=== PATIENT | male | born 1960 | race African-American/Black ===

== ENCOUNTER 2016-12-28 09:58 | Inpatient (IN) | payer OTHER ==
[2016-12-28 10:42] VITALS: BMI 30.6
--- NOTE | 2016-12-28 11:35 | HP ---
COWS - Scale Resting Pulse: 1= [place] 81-100 Sweatin= Chills/Flushing Restless Observation: 1= Difficult to Sit Still Pupil Size: 0= Normal to Room Light Bone or Joint Aches: 2= Severe Diffuse Aches Runny Nose/ Eye Tearin= Nasal Congestion GI Upset > 30mins: 2= Nausea/Diarrhea Tremor Observation: 1= Tremor [place], Not Seen Yawning Observation: 1= 1-2x During Session Anxiety or Irritability: 1=Feels Anxious/Irritable Goose Flesh Skin: 0=Smooth Skin COWS Score: 11 Admission [facility] - HPI Chief Complaint: I have a young son, I want to stop using Allergies/Adverse Reactions: Allergies Allergy/AdvReac Type Severity Reaction Status Date / Time lisinopril Allergy Severe Swelling Verified 12/28/16 11:06 History of Present Illness: 56 yo gentleman here for detox from opiates (heroin and street methadone) - relapsed about a year ago. No seizures, History of being on methadone program but too restrictive - now thinking about suboxone after detox. Exam Limitations: Clinical Condition - Ebola screening Have you traveled outside of the country in the last 21 days: No Have you had contact with anyone from an Ebola affected area: No Have you been sick,other than usual withdrawal symptoms: No Do you have a fever: No - Review of Systems Constitutional: Chills, Loss of Appetite, Changes in sleep, Weakness, Unintentional Wgt. Loss EENT: reports: Blurred Vision, Nose Congestion Respiratory: reports: No Symptoms reported Cardiac: reports: No Symptoms Reported GI: reports: Nausea, Abdominal cramping : reports: No Symptoms Reported Musculoskeletal: reports: Back Pain, Muscle Pain Integumentary: reports: No Symptoms Reported Neuro: reports: Headache, Tremors Endocrine: reports: No Symptoms Reported Hematology: reports: No Symptoms Reported Psychiatric: reports: Judgement Intact, Mood/Affect Appropiate, Orientated x3, Anxious Other Systems: Reviewed and Negative Patient History - Patient Medical History Hx Asthma: No Hx Chronic Obstructive Pulmonary Disease (COPD): No Hx Cardiac Disorders: No Hx Hypertension: Yes (poor adherence to meds) Hx Hypercholesterolemia: No Hx Pacemaker: No HX Cerebrovascular Accident: No Hx Seizures: No Hx Dementia: No Hx Diabetes: No Hx Gastrointestinal Disorders: No Hx Liver Disease: No Hx Genitourinary Disorders: No Hx Sexually Transmitted Disorders: No Hx Renal Disease (ESRD): No Hx Thyroid Disease: No Hx Human Immunodeficiency Virus (HIV): No Hx Hepatitis C: No Hx Depression: Yes Hx Suicide Attempt: Yes (three times - last 2001 - slit wrists - hospitalized) Hx Bipolar Disorder: Yes (hospitalized 2016 - suicidal ideation - [place] [facility] ) Hx Schizophrenia: No Other Medical History: +PPD - not treated - Patient Surgical History Past Surgical History: Yes Hx Neurologic Surgery: No Hx Cataract Extraction: No Hx Cardiac Surgery: No Hx Lung Surgery: No Hx Breast Surgery: No Hx Breast Biopsy: No Hx Abdominal Surgery: No Hx Appendectomy: No Hx Cholecystectomy: No Hx Genitourinary Surgery: No Hx Section: No Hx Orthopedic Surgery: No Other Surgical History: HERNIA REPAIR- 1979 Anesthesia Reaction: No - PPD History Previous Implant?: Yes (states never took meds but cxr neg) Documented Results: Positive w/o proof Implanted On Prior [facility] Admission?: No PPD to be Administered?: No - Reproductive History Patient is a Female of Child Bearing Age (11 -55 yrs old): No (male) - Smoking Cessation Smoking history: Current every day smoker Have you smoked in the past 12 months: Yes Aproximately how many cigarettes per day: 20 Hx Chewing Tobacco Use: No Initiated information on smoking cessation: Yes 'Breaking Loose' booklet given: 12/28/16 (give on floor) - Substance & Tx. History Hx Alcohol Use: No Hx Substance Use: Yes Substance Use Type: Cocaine, Heroin, Opiates Hx Substance Use Treatment: Yes (detox years ago, rehab six years ago) - Substances Abused Heroin Route: Inhalation Frequency: Daily Amount used: 15 BAGS Age of first use: 16 Date of Last Use: 12/28/16 Non-Rx Methadone Route: Oral Frequency: 3-6 times per week Amount used: 40mg Age of first use: 30 Date of Last Use: 12/28/16 Crack Route: Inhalation Frequency: Daily Amount used: 4 bags Age of first use: 17 Date of Last Use: 12/28/16 Family Disease History - Family Disease History Family Disease History: Other: Father (, [place], ), Mother (, [place]), Brother (one, alive), Sister (two , alive) Admission Physical Exam S - Vital Signs Vital Signs: Vital Signs - 24 hr 12/28/16 10:38 Temperature 98.3 F Pulse Rate 85 Respiratory 20 Rate Blood Pressure 150/113 - Physical General Appearance: Yes: Nourished, Appropriately Dressed, Mild Distress, Anxious HEENTM: Yes: Hearing grossly Normal, Normocephalic, Normal Voice, Pharynx Normal Respiratory: Yes: Normal Breath Sounds, No Respiratory Distress Neck: Yes: No masses,lesions,Nodules Breast: Yes: Breast Exam Deferred Cardiology: Yes: Regular Rhythm, Regular Rate Abdominal: Yes: Soft Genitourinary: Yes: Within Normal Limits Back: Yes: Normal Inspection Musculoskeletal: Yes: full range of Motion, Gait Steady, Back pain, Muscle Pain Extremities: Yes: Normal Inspection, Normal Range of Motion Neurological: Yes: Fully Oriented, Alert, Normal Mood/Affect, Normal Response Integumentary: Yes: Normal Color, Warm Lymphatic: Yes: Within Normal Limits - Diagnostic (1) HTN (hypertension) Current Visit: Yes Status: Chronic Qualifiers: Hypertension type: essential hypertension Qualified Code(s): I10 - Essential (primary) hypertension (2) Nicotine dependence Current Visit: Yes Status: Chronic Qualifiers: Nicotine product type: cigarettes Substance use status: uncomplicated Qualified Code(s): F17.210 - Nicotine dependence, cigarettes, uncomplicated (3) Uncomplicated opioid dependence Current Visit: Yes Status: Chronic (4) History of positive PPD Current Visit: Yes Status: Chronic Comment: states never took medication but CXR has been normal Cleared for Admission [facility] - Detox or Rehab [facility] Level of Care: Medically Managed Detox Regimen/Protocol: Methadone [facility] Breath Alcohol Content Breath Alcohol Content: 0 Urine Drug Screen - Results Drug Screen Negative: No Urine Drug Screen Results: KADY-Cocaine, OPI-Opiates, BZO-Benzodiazepines
[2016-12-28] MEDS ORDERED: P-EPHED 60MG/TRIPROLIDI 2.5MG TABLET PO PRN (11:48)
[2016-12-28] MEDS ORDERED: NICOTINE POLACRILEX 4 MG GUM BUC PRN (11:48)
[2016-12-28] MEDS ORDERED: IBUPROFEN 400 MG TABLET (FP) PO PRN (11:48)
[2016-12-28] MEDS ORDERED: LOPERAMIDE HCL 2 MG CAPSULE PO PRN (11:48)
[2016-12-28] MEDS ORDERED: MENTHOL/PHENOL 1 EACH UD MM PRN (11:48)
[2016-12-28] MEDS ORDERED: ACETAMINOPHEN 325 MG TABLET (FP) PO PRN (11:48)
[2016-12-28] MEDS ORDERED: MAG HYDROX/AL HYDROX/SIMETH 30 ML UNIT-DOSE CUP PO PRN (11:48)
[2016-12-28] MEDS ORDERED: guaiFENesin/D-METHORPHAN HB 10 ML UNIT-DOSE CUPS PO PRN (11:48)
[2016-12-28] MEDS ORDERED: MAGNESIUM HYDROX 2400MG/30ML ORAL SUSPENSION 30 ML CUP PO PRN (11:48)
[2016-12-28] MEDS ORDERED: MAGNESIUM CITRATE 300 ML BOTTLE PO PRN (11:48)
[2016-12-28] MEDS ORDERED: METHADONE HCL 10 MG TABLET (FOR DETOX USE ONLY) PO ONE ×2 (13:00→23:00)
[2016-12-28] MEDS: amLODIPine BESYLATE 10 MG TABLET (FP) PO SCH (13:25)
[2016-12-28] MEDS: HYDROCHLOROTHIAZIDE 25 MG TABLET (FP) PO SCH (13:25)
[2016-12-28] MEDS: diazePAM 5 MG TABLET PO PRN ×2 (13:25→22:27)
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
[2016-12-28 19:24] LABS: URINE APPEARANCE CLEAR; URINE BILIRUBIN NEGATIVE (NEGATIVE); URINE BLOOD NEGATIVE (NEGATIVE); URINE COLOR DKYELLOW; URINE GLUCOSE (UA) 1+ (NEGATIVE); URINE KETONE NEGATIVE (NEGATIVE); URINE LEUK ESTERASE TRACE (NEGATIVE); URINE NITRITE NEGATIVE (NEGATIVE); URINE PROTEIN 1+ (NEGATIVE); URINE UROBILINOGEN NEGATIVE E.U./dl (0.2-1.0)
[2016-12-28 19:26] LABS: URINE BACTERIA RARE /hpf (NONE SEEN); URINE HYALINE CAST 4 /lpf; URINE MUCUS MODERATE; URINE RBC 2 /hpf (0-3); URINE WBC 35 /hpf (3-5)
[2016-12-28] MEDS ORDERED: diphenhydrAMINE HCL 50 MG CAPSULE PO PRN (22:00)
[2016-12-28] MEDS: THIAMINE HCL 100 MG TABLET (FP) PO SCH (22:27)
[2016-12-28] MEDS: traZODone HCL 100 MG TABLET (FP) PO SCH (22:28)
[2016-12-28] MEDS: cloNIDine HCL 0.1 MG TABLET PO PRN (22:28)
[2016-12-28] MEDS: DIVALPROEX SODIUM 500 MG TABLET E.C. PO SCH (22:28)
[2016-12-29] MEDS: diazePAM 5 MG TABLET PO PRN ×3 (05:42→22:35)
[2016-12-29] MEDS: cloNIDine HCL 0.1 MG TABLET PO PRN ×2 (06:29→22:35)
[2016-12-29] MEDS: HYDROCHLOROTHIAZIDE 25 MG TABLET (FP) PO SCH ×2 (07:29→10:27)
[2016-12-29] MEDS ORDERED: METHADONE HCL 10 MG TABLET (FOR DETOX USE ONLY) PO ONE (10:00)
[2016-12-29] MEDS: PRENATAL VITAMINS W/ FOLIC ACID TABLET (FP) PO SCH (10:26)
[2016-12-29] MEDS: amLODIPine BESYLATE 10 MG TABLET (FP) PO SCH (10:26)
[2016-12-29 11:03] LABS: URINE APPEARANCE CLEAR; URINE BILIRUBIN NEGATIVE (NEGATIVE); URINE BLOOD NEGATIVE (NEGATIVE); URINE COLOR LTYELLOW; URINE GLUCOSE (UA) 1+ (NEGATIVE); URINE KETONE NEGATIVE (NEGATIVE); URINE NITRITE NEGATIVE (NEGATIVE); URINE PROTEIN NEGATIVE (NEGATIVE); URINE UROBILINOGEN NEGATIVE E.U./dl (0.2-1.0)
[2016-12-29 11:06] LABS: MCH 28.5 pg (25.7-33.7); MCHC 33.3 g/dl (32.0-35.9); MEAN CELL VOLUME 85.5 fl (80-96); MEAN PLT VOLUME 8.7 fl (7.5-11.1); PLATELET COUNT 213 K/MM3 (134-434)
[2016-12-29 11:08] LABS: URINE LEUK ESTERASE TRACE (NEGATIVE)
[2016-12-29 11:09] LABS: URINE HYALINE CAST 1 /lpf; URINE MUCUS RARE; URINE RBC <1 /hpf (0-3); URINE WBC 5 /hpf (3-5)
[2016-12-29 11:13] LABS: ALBUMIN 2.9 g/dl (3.4-5.0)
[2016-12-29 11:19] LABS: BILIRUBIN,TOTAL 0.2 mg/dL (0.2-1.0); COCKROFT - GAULT 81.84; CREATININE 1.5 mg/dL (0.7-1.3); TOT PROT 6.1 g/dl (6.4-8.2)
--- NOTE | 2016-12-29 12:45 | EKG ---
Test Reason : Blood Pressure : / mmHG Vent. Rate : 071 BPM Atrial Rate : 071 BPM P-R Int : 142 ms QRS Dur : 088 ms QT Int : 414 ms P-R-T Axes : -86 -09 -45 degrees QTc Int : 449 ms UNUSUAL P AXIS, POSSIBLE ECTOPIC ATRIAL RHYTHM MINIMAL VOLTAGE CRITERIA FOR LVH, MAY BE NORMAL VARIANT T WAVE ABNORMALITY, CONSIDER LATERAL ISCHEMIA ABNORMAL ECG NO PREVIOUS ECGS AVAILABLE Confirmed by DORCAS FELIZ, TRAMAINE ([id number]) on 12/29/2016 12:45:17 PM Referred By: Confirmed By:TRAMAINE TOSCANO MD
--- NOTE | 2016-12-29 14:01 | PN ---
S COWS - Scale Resting Pulse: 0= HI 80 or Below Sweatin= Chills/Flushing Restless Observation: 3= Extraneous Movement Pupil Size: 0= Normal to Room Light Bone or Joint Aches: 1= Mild Discomfort Runny Nose/ Eye Tearin= Runny Nose/Eyes GI Upset > 30mins: 2= Nausea/Diarrhea Tremor Observation of Outstretched Hands: 2= Slight Tremor Visible Yawning Observation: 1= 1-2x During Session Anxiety or Irritability: 2=Irritable/Anxious Goose Flesh Skin: 0=Smooth Skin COWS Score: 14 S Progress Note (SOAP) Subjective: Tremor, chills, anxious, restless, interrupted sleep, sweating Objective: 12/29/16 13:57 Last Vital Signs Temp Pulse Resp BP Pulse Ox 97.2 F L 73 18 157/97 12/29/16 09:19 12/29/16 13:10 12/29/16 13:10 12/29/16 13:10 Laboratory Tests 12/28/16 12/29/16 12/29/16 19:03 07:00 07:00 WBC 5.0 RBC 4.29 Hgb 12.2 Hct 36.7 MCV 85.5 MCHC 33.3 RDW 15.0 Plt Count 213 MPV 8.7 Sodium 142 Potassium 3.2 L Chloride 105 Carbon Dioxide 28 Anion Gap 9 BUN 20 H Creatinine 1.5 H Creat Clearance w eGFR 48.41 Random Glucose 85 Calcium 8.0 L Total Bilirubin 0.2 AST 7 L ALT 15 Alkaline Phosphatase 55 Total Protein 6.1 L Albumin 2.9 L Urine Color Dkyellow Urine Appearance Clear Urine pH 6.0 Ur Specific [place] 1.026 Urine Protein 1+ H Urine Glucose (UA) 1+ H Urine Ketones Negative Urine Blood Negative Urine Nitrite Negative Urine Bilirubin Negative Urine Urobilinogen Negative Ur Leukocyte Esterase Trace H Urine RBC 2 Urine WBC 35 Ur Epithelial Cells Rare Urine Bacteria Rare Hyaline Casts 4 Urine Mucus Moderate RPR Titer 12/29/16 12/29/16 07:00 09:23 WBC RBC Hgb Hct MCV MCHC RDW Plt Count MPV Sodium Potassium Chloride Carbon Dioxide Anion Gap BUN Creatinine Creat Clearance w eGFR Random Glucose Calcium Total Bilirubin AST ALT Alkaline Phosphatase Total Protein Albumin Urine Color Ltyellow Urine Appearance Clear Urine pH 5.0 Ur Specific [place] 1.017 Urine Protein Negative Urine Glucose (UA) 1+ H Urine Ketones Negative Urine Blood Negative Urine Nitrite Negative Urine Bilirubin Negative Urine Urobilinogen Negative Ur Leukocyte Esterase Trace H Urine RBC <1 Urine WBC 5 Ur Epithelial Cells Rare Urine Bacteria Hyaline Casts 1 Urine Mucus Rare RPR Titer Nonreactive Labs noted: K 3.2, BUN 20, serum creatinine 1.5, GFR 48.41; UA 1+ glucose ( repeated) Assessment: 12/29/16 14:01 Withdrawal symptoms Noted with hypokalemia, KYLER secondary to dehydration, mild glycosuria Plan: Continue detox Hypokalemia: K Dur 40 meq x 2 doses today, repeat BMP in AM KYLER secondary to dehydration: encouraged to drink lots of water, provide water pitcher, repeat BMP in AM Glycosuria: encouraged to drink more water
[2016-12-29] MEDS: POTASSIUM CHLORIDE TABS 20 MEQ TABLET.ER (FP) PO SCH ×2 (15:35→19:45)
[2016-12-29] MEDS: THIAMINE HCL 100 MG TABLET (FP) PO SCH (22:34)
[2016-12-29] MEDS: DIVALPROEX SODIUM 500 MG TABLET E.C. PO SCH (22:34)
[2016-12-29] MEDS: traZODone HCL 100 MG TABLET (FP) PO SCH (22:35)
[2016-12-30] MEDS: diazePAM 5 MG TABLET PO PRN ×2 (05:29→10:16)
[2016-12-30] MEDS ORDERED: METHADONE HCL 5 MG TABLET (FOR DETOX USE ONLY) PO ONE (10:00)
[2016-12-30] MEDS: amLODIPine BESYLATE 10 MG TABLET (FP) PO SCH (10:11)
[2016-12-30] MEDS: PRENATAL VITAMINS W/ FOLIC ACID TABLET (FP) PO SCH (10:11)
[2016-12-30] MEDS: HYDROCHLOROTHIAZIDE 25 MG TABLET (FP) PO SCH (10:12)
[2016-12-30] MEDS: POTASSIUM CHLORIDE TABS 20 MEQ TABLET.ER (FP) PO SCH ×2 (10:12→22:28)
[2016-12-30 10:20] LABS: CALCIUM 8.6 mg/dL (8.5-10.1)
[2016-12-30 10:22] LABS: COCKROFT - GAULT 87.69; CREATININE 1.4 mg/dL (0.7-1.3)
--- NOTE | 2016-12-30 12:04 | PN ---
[facility] COWS - Scale Resting Pulse: 1= [place] 81-100 Sweatin=Flushed/Facial Moisture Restless Observation: 1= Difficult to Sit Still Pupil Size: 0= Normal to Room Light Bone or Joint Aches: 2= Severe Diffuse Aches Runny Nose/ Eye Tearin= Runny Nose/Eyes GI Upset > 30mins: 2= Nausea/Diarrhea Tremor Observation of Outstretched Hands: 2= Slight Tremor Visible Yawning Observation: 1= 1-2x During Session Anxiety or Irritability: 2=Irritable/Anxious Goose Flesh Skin: 0=Smooth Skin COWS Score: 15 BHS Progress Note (SOAP) Subjective: Sweating,anxiety,muscle aches/spasm,interrupted sleep,restless Objective: 12/30/16 12:03 Vital Signs - 8 hr 12/30/16 12/30/16 12/30/16 06:12 07:03 09:29 Temperature 97.1 F L 96.0 F L Pulse Rate 83 78 88 Respiratory 18 20 Rate Blood Pressure 144/103 134/80 149/91 Laboratory Tests 12/28/16 12/29/16 12/29/16 19:03 07:00 07:00 WBC 5.0 RBC 4.29 Hgb 12.2 Hct 36.7 MCV 85.5 MCHC 33.3 RDW 15.0 Plt Count 213 MPV 8.7 Sodium 142 Potassium 3.2 L Chloride 105 Carbon Dioxide 28 Anion Gap 9 BUN 20 H Creatinine 1.5 H Creat Clearance w eGFR 48.41 Random Glucose 85 Calcium 8.0 L Total Bilirubin 0.2 AST 7 L ALT 15 Alkaline Phosphatase 55 Total Protein 6.1 L Albumin 2.9 L Urine Color Dkyellow Urine Appearance Clear Urine pH 6.0 Ur Specific [place] 1.026 Urine Protein 1+ H Urine Glucose (UA) 1+ H Urine Ketones Negative Urine Blood Negative Urine Nitrite Negative Urine Bilirubin Negative Urine Urobilinogen Negative Ur Leukocyte Esterase Trace H Urine RBC 2 Urine WBC 35 Ur Epithelial Cells Rare Urine Bacteria Rare Hyaline Casts 4 Urine Mucus Moderate RPR Titer 12/29/16 12/29/16 12/30/16 07:00 09:23 07:00 WBC RBC Hgb Hct MCV MCHC RDW Plt Count MPV Sodium 142 Potassium 3.8 Chloride 105 Carbon Dioxide 29 Anion Gap 8 BUN 17 Creatinine 1.4 H Creat Clearance w eGFR Random Glucose 87 Calcium 8.6 Total Bilirubin AST ALT Alkaline Phosphatase Total Protein Albumin Urine Color Ltyellow Urine Appearance Clear Urine pH 5.0 Ur Specific [place] 1.017 Urine Protein Negative Urine Glucose (UA) 1+ H Urine Ketones Negative Urine Blood Negative Urine Nitrite Negative Urine Bilirubin Negative Urine Urobilinogen Negative Ur Leukocyte Esterase Trace H Urine RBC <1 Urine WBC 5 Ur Epithelial Cells Rare Urine Bacteria Hyaline Casts 1 Urine Mucus Rare RPR Titer Nonreactive labs noted Assessment: 12/30/16 12:04 Withdrawal sx. Plan: continue detox
[2016-12-30] MEDS: DIVALPROEX SODIUM 500 MG TABLET E.C. PO SCH (22:28)
[2016-12-30] MEDS: THIAMINE HCL 100 MG TABLET (FP) PO SCH (22:28)
[2016-12-30] MEDS: traZODone HCL 100 MG TABLET (FP) PO SCH (22:28)
[2016-12-31] MEDS: cloNIDine HCL 0.1 MG TABLET PO PRN ×2 (06:50→22:18)
[2016-12-31] MEDS: diazePAM 5 MG TABLET PO PRN ×2 (06:50→10:29)
[2016-12-31] MEDS ORDERED: METHADONE HCL 5 MG TABLET (FOR DETOX USE ONLY) PO ONE (10:00)
[2016-12-31] MEDS: HYDROCHLOROTHIAZIDE 25 MG TABLET (FP) PO SCH (10:28)
[2016-12-31] MEDS: PRENATAL VITAMINS W/ FOLIC ACID TABLET (FP) PO SCH (10:30)
[2016-12-31] MEDS: amLODIPine BESYLATE 10 MG TABLET (FP) PO SCH (10:31)
[2016-12-31] MEDS: POTASSIUM CHLORIDE TABS 20 MEQ TABLET.ER (FP) PO SCH ×2 (10:32→22:18)
--- NOTE | 2016-12-31 12:25 | PN ---
[facility] Progress Note (SOAP) Subjective: Sweating,interrupted sleep,restless Objective: 12/31/16 12:23 Vital Signs - 8 hr 12/31/16 12/31/16 06:25 09:29 Temperature 96.8 F L 97.1 F L Pulse Rate 92 H 88 Respiratory 18 18 Rate Blood Pressure 167/111 128/85 Laboratory Tests 12/28/16 12/29/16 12/29/16 19:03 07:00 07:00 WBC 5.0 RBC 4.29 Hgb 12.2 Hct 36.7 MCV 85.5 MCHC 33.3 RDW 15.0 Plt Count 213 MPV 8.7 Sodium 142 Potassium 3.2 L Chloride 105 Carbon Dioxide 28 Anion Gap 9 BUN 20 H Creatinine 1.5 H Creat Clearance w eGFR 48.41 Random Glucose 85 Calcium 8.0 L Total Bilirubin 0.2 AST 7 L ALT 15 Alkaline Phosphatase 55 Total Protein 6.1 L Albumin 2.9 L Urine Color Dkyellow Urine Appearance Clear Urine pH 6.0 Ur Specific [place] 1.026 Urine Protein 1+ H Urine Glucose (UA) 1+ H Urine Ketones Negative Urine Blood Negative Urine Nitrite Negative Urine Bilirubin Negative Urine Urobilinogen Negative Ur Leukocyte Esterase Trace H Urine RBC 2 Urine WBC 35 Ur Epithelial Cells Rare Urine Bacteria Rare Hyaline Casts 4 Urine Mucus Moderate RPR Titer 12/29/16 12/29/16 12/30/16 07:00 09:23 07:00 WBC RBC Hgb Hct MCV MCHC RDW Plt Count MPV Sodium 142 Potassium 3.8 Chloride 105 Carbon Dioxide 29 Anion Gap 8 BUN 17 Creatinine 1.4 H Creat Clearance w eGFR Random Glucose 87 Calcium 8.6 Total Bilirubin AST ALT Alkaline Phosphatase Total Protein Albumin Urine Color Ltyellow Urine Appearance Clear Urine pH 5.0 Ur Specific [place] 1.017 Urine Protein Negative Urine Glucose (UA) 1+ H Urine Ketones Negative Urine Blood Negative Urine Nitrite Negative Urine Bilirubin Negative Urine Urobilinogen Negative Ur Leukocyte Esterase Trace H Urine RBC <1 Urine WBC 5 Ur Epithelial Cells Rare Urine Bacteria Hyaline Casts 1 Urine Mucus Rare RPR Titer Nonreactive labs noted Assessment: 12/31/16 12:24 Withdrawal sx. Plan: Continue detox
[2016-12-31] MEDS: traZODone HCL 100 MG TABLET (FP) PO SCH (22:17)
[2016-12-31] MEDS: DIVALPROEX SODIUM 500 MG TABLET E.C. PO SCH (22:17)
[2016-12-31] MEDS: THIAMINE HCL 100 MG TABLET (FP) PO SCH (22:18)
[2017-01-01] MEDS: cloNIDine HCL 0.1 MG TABLET PO PRN (06:16)
[2017-01-01] MEDS ORDERED: METHADONE HCL 10 MG TABLET (FOR DETOX USE ONLY) PO ONE (10:00)
[2017-01-01] MEDS: HYDROCHLOROTHIAZIDE 25 MG TABLET (FP) PO SCH (11:02)
[2017-01-01] MEDS: amLODIPine BESYLATE 10 MG TABLET (FP) PO SCH (11:02)
[2017-01-01] MEDS: PRENATAL VITAMINS W/ FOLIC ACID TABLET (FP) PO SCH (11:03)
[2017-01-01] MEDS: POTASSIUM CHLORIDE TABS 20 MEQ TABLET.ER (FP) PO SCH ×2 (11:05→22:22)
--- NOTE | 2017-01-01 13:30 | PN ---
S Progress Note (SOAP) Subjective: Diarrhea, Stomach Cramping, Tremors, H/A, Body Aches. Objective: PT. A & O X 2 (DISORIENTED ABOUT DAY / DATE). PT. DENIES CHEST PAIN. 01/01/17 13:28 Vital Signs Temperature 98.4 F 01/01/17 09:54 Pulse Rate 72 01/01/17 09:54 Respiratory Rate 18 01/01/17 09:54 Blood Pressure 155/91 01/01/17 09:54 O2 Sat by Pulse Oximetry (%) Laboratory Last Values WBC 5.0 K/mm3 (4.0-10.0) 12/29/16 07:00 RBC 4.29 M/mm3 (4.00-5.60) 12/29/16 07:00 Hgb 12.2 GM/dL (11.7-16.9) 12/29/16 07:00 Hct 36.7 % (35.4-49) 12/29/16 07:00 MCV 85.5 fl (80-96) 12/29/16 07:00 MCHC 33.3 g/dl (32.0-35.9) 12/29/16 07:00 RDW 15.0 % (11.9-15.9) 12/29/16 07:00 Plt Count 213 K/MM3 (134-434) 12/29/16 07:00 MPV 8.7 fl (7.5-11.1) 12/29/16 07:00 Sodium 142 mmol/L (136-145) 12/30/16 07:00 Potassium 3.8 mmol/L (3.5-5.1) 12/30/16 07:00 Chloride 105 mmol/L (98-107) 12/30/16 07:00 Carbon Dioxide 29 mmol/L (21-32) 12/30/16 07:00 Anion Gap 8 (8-16) 12/30/16 07:00 BUN 17 mg/dL (7-18) 12/30/16 07:00 Creatinine 1.4 mg/dL (0.7-1.3) H 12/30/16 07:00 Creat Clearance w eGFR 48.41 (>60) 12/29/16 07:00 Random Glucose 87 mg/dL (74-106) 12/30/16 07:00 Calcium 8.6 mg/dL (8.5-10.1) 12/30/16 07:00 Total Bilirubin 0.2 mg/dL (0.2-1.0) 12/29/16 07:00 AST 7 U/L (15-37) L 12/29/16 07:00 ALT 15 U/L (12-78) 12/29/16 07:00 Alkaline Phosphatase 55 U/L (45-117) 12/29/16 07:00 Total Protein 6.1 g/dl (6.4-8.2) L 12/29/16 07:00 Albumin 2.9 g/dl (3.4-5.0) L 12/29/16 07:00 Urine Color Ltyellow 12/29/16 09:23 Urine Appearance Clear 12/29/16 09:23 Urine pH 5.0 (5.0-8.0) 12/29/16 09:23 Ur Specific [place] 1.017 (1.001-1.035) 12/29/16 09:23 Urine Protein Negative (NEGATIVE) 12/29/16 09:23 Urine Glucose (UA) 1+ (NEGATIVE) H 12/29/16 09:23 Urine Ketones Negative (NEGATIVE) 12/29/16 09:23 Urine Blood Negative (NEGATIVE) 12/29/16 09:23 Urine Nitrite Negative (NEGATIVE) 12/29/16 09:23 Urine Bilirubin Negative (NEGATIVE) 12/29/16 09:23 Urine Urobilinogen Negative E.U./dl (0.2-1.0) 12/29/16 09:23 Ur Leukocyte Esterase Trace (NEGATIVE) H 12/29/16 09:23 Urine RBC <1 /hpf (0-3) 12/29/16 09:23 Urine WBC 5 /hpf (3-5) 12/29/16 09:23 Ur Epithelial Cells Rare /hpf (FEW) 12/29/16 09:23 Urine Bacteria Rare /hpf (NONE SEEN) 12/28/16 19:03 Hyaline Casts 1 /lpf 12/29/16 09:23 Urine Mucus Rare 12/29/16 09:23 RPR Titer Nonreactive (NONREACTIVE) 12/29/16 07:00 LABS NOTED. Assessment: 01/01/17 13:29 WITHDRAWAL SYMPTOMS. Plan: CONTINUE DETOX. ADVISED PATIENT TO FOLLOW-UP WITH [facility] / REHAB MEDICAL PROVIDER AFTER DISCHARGE FROM DETOX [facility] GENERAL MEDICAL ASSESSMENT AND FOR ABNORMAL ADMISSION LAB VALUES.
[2017-01-01] MEDS: DIVALPROEX SODIUM 500 MG TABLET E.C. PO SCH (22:22)
[2017-01-01] MEDS: traZODone HCL 100 MG TABLET (FP) PO SCH (22:22)
[2017-01-01] MEDS: THIAMINE HCL 100 MG TABLET (FP) PO SCH (22:22)
[2017-01-02] MEDS: cloNIDine HCL 0.1 MG TABLET PO PRN (05:55)
[2017-01-02] MEDS ORDERED: METHADONE HCL 5 MG TABLET (FOR DETOX USE ONLY) PO ONE (06:00)
[2017-01-02] MEDS: HYDROCHLOROTHIAZIDE 25 MG TABLET (FP) PO SCH (10:42)
[2017-01-02] MEDS: POTASSIUM CHLORIDE TABS 20 MEQ TABLET.ER (FP) PO SCH (10:42)
[2017-01-02] MEDS: amLODIPine BESYLATE 10 MG TABLET (FP) PO SCH (10:42)
[2017-01-02] MEDS: PRENATAL VITAMINS W/ FOLIC ACID TABLET (FP) PO SCH (10:43)
--- NOTE | 2017-01-02 15:24 | DS ---
[facility] Detox Discharge Summary Admission Date: 12/28/16 Discharge Date: 01/02/17 - History Present History: Cocaine Dependence, Opioid Dependence Pertinent Past History: HTN PPD+ - Physical Exam Results Vital Signs: Vital Signs Temperature 98.2 F 01/02/17 12:35 Pulse Rate 87 01/02/17 12:35 Respiratory Rate 18 01/02/17 12:35 Blood Pressure 141/91 01/02/17 12:35 O2 Sat by Pulse Oximetry (%) Pertinent Admission Physical Exam Findings: Withdrawal sx. Laboratory Last Values WBC 5.0 K/mm3 (4.0-10.0) 12/29/16 07:00 RBC 4.29 M/mm3 (4.00-5.60) 12/29/16 07:00 Hgb 12.2 GM/dL (11.7-16.9) 12/29/16 07:00 Hct 36.7 % (35.4-49) 12/29/16 07:00 MCV 85.5 fl (80-96) 12/29/16 07:00 MCHC 33.3 g/dl (32.0-35.9) 12/29/16 07:00 RDW 15.0 % (11.9-15.9) 12/29/16 07:00 Plt Count 213 K/MM3 (134-434) 12/29/16 07:00 MPV 8.7 fl (7.5-11.1) 12/29/16 07:00 Sodium 142 mmol/L (136-145) 12/30/16 07:00 Potassium 3.8 mmol/L (3.5-5.1) 12/30/16 07:00 Chloride 105 mmol/L (98-107) 12/30/16 07:00 Carbon Dioxide 29 mmol/L (21-32) 12/30/16 07:00 Anion Gap 8 (8-16) 12/30/16 07:00 BUN 17 mg/dL (7-18) 12/30/16 07:00 Creatinine 1.4 mg/dL (0.7-1.3) H 12/30/16 07:00 Creat Clearance w eGFR 48.41 (>60) 12/29/16 07:00 Random Glucose 87 mg/dL (74-106) 12/30/16 07:00 Calcium 8.6 mg/dL (8.5-10.1) 12/30/16 07:00 Total Bilirubin 0.2 mg/dL (0.2-1.0) 12/29/16 07:00 AST 7 U/L (15-37) L 12/29/16 07:00 ALT 15 U/L (12-78) 12/29/16 07:00 Alkaline Phosphatase 55 U/L (45-117) 12/29/16 07:00 Total Protein 6.1 g/dl (6.4-8.2) L 12/29/16 07:00 Albumin 2.9 g/dl (3.4-5.0) L 12/29/16 07:00 Urine Color Ltyellow 12/29/16 09:23 Urine Appearance Clear 12/29/16 09:23 Urine pH 5.0 (5.0-8.0) 12/29/16 09:23 Ur Specific [place] 1.017 (1.001-1.035) 12/29/16 09:23 Urine Protein Negative (NEGATIVE) 12/29/16 09:23 Urine Glucose (UA) 1+ (NEGATIVE) H 12/29/16 09:23 Urine Ketones Negative (NEGATIVE) 12/29/16 09:23 Urine Blood Negative (NEGATIVE) 12/29/16 09:23 Urine Nitrite Negative (NEGATIVE) 12/29/16 09:23 Urine Bilirubin Negative (NEGATIVE) 12/29/16 09:23 Urine Urobilinogen Negative E.U./dl (0.2-1.0) 12/29/16 09:23 Ur Leukocyte Esterase Trace (NEGATIVE) H 12/29/16 09:23 Urine RBC <1 /hpf (0-3) 12/29/16 09:23 Urine WBC 5 /hpf (3-5) 12/29/16 09:23 Ur Epithelial Cells Rare /hpf (FEW) 12/29/16 09:23 Urine Bacteria Rare /hpf (NONE SEEN) 12/28/16 19:03 Hyaline Casts 1 /lpf 12/29/16 09:23 Urine Mucus Rare 12/29/16 09:23 RPR Titer Nonreactive (NONREACTIVE) 12/29/16 07:00 labs noted - Treatment Hospital Course: Detox Protocol Followed, Detoxed Safely, Responded well, Discharged Condition Good, Rehab Referral Accepted Patient has Accepted a Rehab Referral to: [facility] - Medication Discharge Medications: Ambulatory Orders Amlodipine Besylate [Norvasc -] 10 mg PO DAILY 12/28/16 Divalproex Sodium [Divalproex Sodium ER] 500 mg PO HS #60 tab.er.24h 12/28/16 Divalproex [Depakote -] 1,000 mg PO HS 12/28/16 Hydrochlorothiazide [Hctz -] 50 mg PO DAILY 12/28/16 Trazodone HCl [Desyrel -] 100 mg PO HS 12/28/16 Trazodone HCl [Desyrel -] 100 mg PO HS #30 tablet 12/28/16 Bupropion HCl [Wellbutrin Xl] 300 mg PO DAILY 01/02/17 - Diagnosis (1) Cocaine dependence Current Visit: Yes Status: Acute Qualifiers: Substance use status: uncomplicated Qualified Code(s): F14.20 - Cocaine dependence, uncomplicated (2) Bipolar disorder Current Visit: Yes Status: Chronic (3) HTN (hypertension) Current Visit: Yes Status: Chronic Qualifiers: Hypertension type: essential hypertension Qualified Code(s): I10 - Essential (primary) hypertension (4) History of positive PPD Current Visit: Yes Status: Chronic (5) Nicotine dependence Current Visit: Yes Status: Chronic Qualifiers: Nicotine product type: cigarettes Substance use status: uncomplicated Qualified Code(s): F17.210 - Nicotine dependence, cigarettes, uncomplicated (6) Opioid dependence with withdrawal Current Visit: Yes Status: Acute - AMA Did Patient Leave Against Medical Advice: No
--- NOTE | 2017-01-02 15:24 | HP ---
[facility] Rehab Assess/Revision - Admission History Admitted to Rehab from: [facility] Date of Admission to Rehab: 01/02/17 - Vital signs Vital Signs: Vital Signs Period Temp Pulse Resp BP Sys/[place] Pulse Ox Last 24 Hr 96.0 F-98.2 F 73-89 18-20 117-157/70-115 - Findings Detox History & Physical reviewed: Yes Concur with findings: Yes
[2017-01-02] MEDS: DIVALPROEX SODIUM 500 MG TABLET E.C. PO SCH (21:24)
[2017-01-02] MEDS: THIAMINE HCL 100 MG TABLET (FP) PO SCH (21:25)
[2017-01-02] MEDS: traZODone HCL 100 MG TABLET (FP) PO SCH (21:25)
[2017-01-03] MEDS: PRENATAL VITAMINS W/ FOLIC ACID TABLET (FP) PO SCH (09:57)
[2017-01-03] MEDS: amLODIPine BESYLATE 10 MG TABLET (FP) PO SCH (09:57)
[2017-01-03] MEDS: TRIAMTERENE AND HCTZ - 37.5 MG/25 MG CAPSULE PO SCH (09:59)
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
[2017-01-03] MEDS: THIAMINE HCL 100 MG TABLET (FP) PO SCH (21:21)
[2017-01-03] MEDS: DIVALPROEX SODIUM 500 MG TABLET E.C. PO SCH (21:21)
[2017-01-03] MEDS: traZODone HCL 100 MG TABLET (FP) PO SCH (21:21)
[2017-01-04] MEDS: amLODIPine BESYLATE 10 MG TABLET (FP) PO SCH (11:36)
[2017-01-04] MEDS: PRENATAL VITAMINS W/ FOLIC ACID TABLET (FP) PO SCH (11:36)
[2017-01-04] MEDS: TRIAMTERENE AND HCTZ - 37.5 MG/25 MG CAPSULE PO SCH (11:36)
[2017-01-04] MEDS ORDERED: traZODone HCL 50 MG TABLET (FP) ONE (19:28)
[2017-01-04] MEDS: DIVALPROEX SODIUM 500 MG TABLET E.C. PO SCH (21:21)
[2017-01-04] MEDS: THIAMINE HCL 100 MG TABLET (FP) PO SCH (21:22)
[2017-01-04] MEDS: traZODone HCL 100 MG TABLET (FP) PO SCH (21:22)
[2017-01-05] MEDS: amLODIPine BESYLATE 10 MG TABLET (FP) PO SCH (10:05)
[2017-01-05] MEDS: PRENATAL VITAMINS W/ FOLIC ACID TABLET (FP) PO SCH (10:05)
[2017-01-05] MEDS: TRIAMTERENE AND HCTZ - 37.5 MG/25 MG CAPSULE PO SCH (10:05)
[2017-01-05] MEDS: DIVALPROEX SODIUM 500 MG TABLET E.C. PO SCH (21:17)
[2017-01-05] MEDS: THIAMINE HCL 100 MG TABLET (FP) PO SCH (21:18)
[2017-01-05] MEDS: traZODone HCL 100 MG TABLET (FP) PO SCH (21:18)
[2017-01-06] MEDS: PRENATAL VITAMINS W/ FOLIC ACID TABLET (FP) PO SCH (10:16)
[2017-01-06] MEDS: amLODIPine BESYLATE 10 MG TABLET (FP) PO SCH (10:17)
[2017-01-06] MEDS: TRIAMTERENE AND HCTZ - 37.5 MG/25 MG CAPSULE PO SCH (10:18)
[2017-01-06] MEDS: traZODone HCL 100 MG TABLET (FP) PO SCH (21:26)
[2017-01-06] MEDS: DIVALPROEX SODIUM 500 MG TABLET E.C. PO SCH (21:26)
[2017-01-06] MEDS: THIAMINE HCL 100 MG TABLET (FP) PO SCH (21:26)
[2017-01-07] MEDS: PRENATAL VITAMINS W/ FOLIC ACID TABLET (FP) PO SCH (10:14)
[2017-01-07] MEDS: TRIAMTERENE AND HCTZ - 37.5 MG/25 MG CAPSULE PO SCH (10:14)
[2017-01-07] MEDS: amLODIPine BESYLATE 10 MG TABLET (FP) PO SCH (10:14)
[2017-01-07] MEDS ORDERED: LIDOCAINE 5% TOPICAL PATCH TP ONE (13:00)
[2017-01-07] MEDS: hydrOXYzine PAMOATE 50 MG CAPSULE (FP) PO PRN ×2 (15:03→21:26)
[2017-01-07] MEDS: THIAMINE HCL 100 MG TABLET (FP) PO SCH (21:25)
[2017-01-07] MEDS: traZODone HCL 100 MG TABLET (FP) PO SCH (21:26)
[2017-01-07] MEDS: DIVALPROEX SODIUM 500 MG TABLET E.C. PO SCH (21:26)
[2017-01-08] MEDS: TRIAMTERENE AND HCTZ - 37.5 MG/25 MG CAPSULE PO SCH (09:58)
[2017-01-08] MEDS: PRENATAL VITAMINS W/ FOLIC ACID TABLET (FP) PO SCH (09:58)
[2017-01-08] MEDS: amLODIPine BESYLATE 10 MG TABLET (FP) PO SCH (09:58)
[2017-01-08] MEDS: hydrOXYzine PAMOATE 50 MG CAPSULE (FP) PO PRN ×2 (09:59→21:16)
[2017-01-08] MEDS ORDERED: LIDOCAINE 5% TOPICAL PATCH TP SCH (10:00)
[2017-01-08] MEDS: DIVALPROEX SODIUM 500 MG TABLET E.C. PO SCH (21:16)
[2017-01-08] MEDS: traZODone HCL 100 MG TABLET (FP) PO SCH (21:16)
[2017-01-08] MEDS: THIAMINE HCL 100 MG TABLET (FP) PO SCH (21:16)
[2017-01-09] MEDS: amLODIPine BESYLATE 10 MG TABLET (FP) PO SCH (10:22)
[2017-01-09] MEDS: PRENATAL VITAMINS W/ FOLIC ACID TABLET (FP) PO SCH (10:22)
[2017-01-09] MEDS: hydrOXYzine PAMOATE 50 MG CAPSULE (FP) PO PRN ×2 (10:22→21:24)
[2017-01-09] MEDS: TRIAMTERENE AND HCTZ - 37.5 MG/25 MG CAPSULE PO SCH (10:22)
[2017-01-09] MEDS: traZODone HCL 100 MG TABLET (FP) PO SCH (21:23)
[2017-01-09] MEDS: THIAMINE HCL 100 MG TABLET (FP) PO SCH (21:23)
[2017-01-09] MEDS: DIVALPROEX SODIUM 500 MG TABLET E.C. PO SCH (21:23)
[2017-01-10] MEDS: PRENATAL VITAMINS W/ FOLIC ACID TABLET (FP) PO SCH (09:41)
[2017-01-10] MEDS: TRIAMTERENE AND HCTZ - 37.5 MG/25 MG CAPSULE PO SCH (09:41)
[2017-01-10] MEDS: amLODIPine BESYLATE 10 MG TABLET (FP) PO SCH (09:41)
[2017-01-10] MEDS: hydrOXYzine PAMOATE 50 MG CAPSULE (FP) PO PRN ×2 (09:42→21:28)
[2017-01-10] MEDS: DIVALPROEX SODIUM 500 MG TABLET E.C. PO SCH (21:27)
[2017-01-10] MEDS: THIAMINE HCL 100 MG TABLET (FP) PO SCH (21:27)
[2017-01-10] MEDS: traZODone HCL 100 MG TABLET (FP) PO SCH (21:27)
[2017-01-11] MEDS: TRIAMTERENE AND HCTZ - 37.5 MG/25 MG CAPSULE PO SCH (10:06)
[2017-01-11] MEDS: PRENATAL VITAMINS W/ FOLIC ACID TABLET (FP) PO SCH (10:06)
[2017-01-11] MEDS: amLODIPine BESYLATE 10 MG TABLET (FP) PO SCH (10:06)
[2017-01-11] MEDS: hydrOXYzine PAMOATE 50 MG CAPSULE (FP) PO PRN ×2 (10:07→21:22)
[2017-01-11] MEDS: THIAMINE HCL 100 MG TABLET (FP) PO SCH (21:21)
[2017-01-11] MEDS: DIVALPROEX SODIUM 500 MG TABLET E.C. PO SCH (21:21)
[2017-01-11] MEDS: traZODone HCL 100 MG TABLET (FP) PO SCH (21:22)
[2017-01-12] MEDS: TRIAMTERENE AND HCTZ - 37.5 MG/25 MG CAPSULE PO SCH (09:58)
[2017-01-12] MEDS: PRENATAL VITAMINS W/ FOLIC ACID TABLET (FP) PO SCH (09:58)
[2017-01-12] MEDS: hydrOXYzine PAMOATE 50 MG CAPSULE (FP) PO PRN ×2 (09:58→21:18)
[2017-01-12] MEDS: amLODIPine BESYLATE 10 MG TABLET (FP) PO SCH (09:58)
[2017-01-12] MEDS: traZODone HCL 100 MG TABLET (FP) PO SCH (21:17)
[2017-01-12] MEDS: THIAMINE HCL 100 MG TABLET (FP) PO SCH (21:17)
[2017-01-12] MEDS: DIVALPROEX SODIUM 500 MG TABLET E.C. PO SCH (21:17)
[2017-01-13] MEDS: amLODIPine BESYLATE 10 MG TABLET (FP) PO SCH (10:13)
[2017-01-13] MEDS: hydrOXYzine PAMOATE 50 MG CAPSULE (FP) PO PRN ×2 (10:13→21:21)
[2017-01-13] MEDS: PRENATAL VITAMINS W/ FOLIC ACID TABLET (FP) PO SCH (10:14)
[2017-01-13] MEDS: TRIAMTERENE AND HCTZ - 37.5 MG/25 MG CAPSULE PO SCH (10:14)
[2017-01-13] MEDS: THIAMINE HCL 100 MG TABLET (FP) PO SCH (21:20)
[2017-01-13] MEDS: traZODone HCL 100 MG TABLET (FP) PO SCH (21:21)
[2017-01-13] MEDS: DIVALPROEX SODIUM 500 MG TABLET E.C. PO SCH (21:21)
[2017-01-14] MEDS: PRENATAL VITAMINS W/ FOLIC ACID TABLET (FP) PO SCH (09:49)
[2017-01-14] MEDS: amLODIPine BESYLATE 10 MG TABLET (FP) PO SCH (09:49)
[2017-01-14] MEDS: TRIAMTERENE AND HCTZ - 37.5 MG/25 MG CAPSULE PO SCH (09:49)
[2017-01-14] MEDS: hydrOXYzine PAMOATE 50 MG CAPSULE (FP) PO PRN ×2 (09:50→21:19)
[2017-01-14] MEDS: traZODone HCL 100 MG TABLET (FP) PO SCH (21:19)
[2017-01-14] MEDS: THIAMINE HCL 100 MG TABLET (FP) PO SCH (21:19)
[2017-01-14] MEDS: DIVALPROEX SODIUM 500 MG TABLET E.C. PO SCH (21:19)
[2017-01-15] MEDS: amLODIPine BESYLATE 10 MG TABLET (FP) PO SCH (09:51)
[2017-01-15] MEDS: hydrOXYzine PAMOATE 50 MG CAPSULE (FP) PO PRN ×2 (09:51→21:15)
[2017-01-15] MEDS: TRIAMTERENE AND HCTZ - 37.5 MG/25 MG CAPSULE PO SCH (09:51)
[2017-01-15] MEDS: PRENATAL VITAMINS W/ FOLIC ACID TABLET (FP) PO SCH (09:51)
[2017-01-15] MEDS: CYCLOBENZAPRINE HCL 10 MG TABLET (FP) PO PRN ×2 (14:20→21:15)
[2017-01-15] MEDS: THIAMINE HCL 100 MG TABLET (FP) PO SCH (21:15)
[2017-01-15] MEDS: traZODone HCL 100 MG TABLET (FP) PO SCH (21:15)
[2017-01-15] MEDS: DIVALPROEX SODIUM 500 MG TABLET E.C. PO SCH (21:15)
[2017-01-16] MEDS: PRENATAL VITAMINS W/ FOLIC ACID TABLET (FP) PO SCH (10:23)
[2017-01-16] MEDS: amLODIPine BESYLATE 10 MG TABLET (FP) PO SCH (10:23)
[2017-01-16] MEDS: TRIAMTERENE AND HCTZ - 37.5 MG/25 MG CAPSULE PO SCH (10:23)
[2017-01-16] MEDS: hydrOXYzine PAMOATE 50 MG CAPSULE (FP) PO PRN ×2 (10:24→21:20)
[2017-01-16] MEDS: CYCLOBENZAPRINE HCL 10 MG TABLET (FP) PO PRN ×2 (10:24→21:20)
[2017-01-16] MEDS: DIVALPROEX SODIUM 500 MG TABLET E.C. PO SCH (21:19)
[2017-01-16] MEDS: THIAMINE HCL 100 MG TABLET (FP) PO SCH (21:19)
[2017-01-16] MEDS: traZODone HCL 100 MG TABLET (FP) PO SCH (21:19)
[2017-01-17] MEDS: hydrOXYzine PAMOATE 50 MG CAPSULE (FP) PO PRN ×2 (09:59→21:17)
[2017-01-17] MEDS: TRIAMTERENE AND HCTZ - 37.5 MG/25 MG CAPSULE PO SCH (09:59)
[2017-01-17] MEDS: amLODIPine BESYLATE 10 MG TABLET (FP) PO SCH (09:59)
[2017-01-17] MEDS: CYCLOBENZAPRINE HCL 10 MG TABLET (FP) PO PRN (09:59)
[2017-01-17] MEDS: PRENATAL VITAMINS W/ FOLIC ACID TABLET (FP) PO SCH (09:59)
[2017-01-17] MEDS: DIVALPROEX SODIUM 500 MG TABLET E.C. PO SCH (21:16)
[2017-01-17] MEDS: traZODone HCL 100 MG TABLET (FP) PO SCH (21:17)
[2017-01-17] MEDS: THIAMINE HCL 100 MG TABLET (FP) PO SCH (21:17)
[2017-01-18] MEDS: amLODIPine BESYLATE 10 MG TABLET (FP) PO SCH (09:57)
[2017-01-18] MEDS: TRIAMTERENE AND HCTZ - 37.5 MG/25 MG CAPSULE PO SCH (09:57)
[2017-01-18] MEDS: PRENATAL VITAMINS W/ FOLIC ACID TABLET (FP) PO SCH (09:58)
[2017-01-18] MEDS: CYCLOBENZAPRINE HCL 10 MG TABLET (FP) PO PRN ×2 (14:10→21:16)
[2017-01-18] MEDS: hydrOXYzine PAMOATE 50 MG CAPSULE (FP) PO PRN ×2 (14:10→21:16)
[2017-01-18] MEDS: traZODone HCL 100 MG TABLET (FP) PO SCH (21:16)
[2017-01-18] MEDS: DIVALPROEX SODIUM 500 MG TABLET E.C. PO SCH (21:16)
[2017-01-18] MEDS: THIAMINE HCL 100 MG TABLET (FP) PO SCH (21:16)
[2017-01-19] MEDS: PRENATAL VITAMINS W/ FOLIC ACID TABLET (FP) PO SCH (09:58)
[2017-01-19] MEDS: amLODIPine BESYLATE 10 MG TABLET (FP) PO SCH (09:58)
[2017-01-19] MEDS: hydrOXYzine PAMOATE 50 MG CAPSULE (FP) PO PRN ×2 (09:58→21:15)
[2017-01-19] MEDS: TRIAMTERENE AND HCTZ - 37.5 MG/25 MG CAPSULE PO SCH (09:58)
[2017-01-19] MEDS: traZODone HCL 100 MG TABLET (FP) PO SCH (21:15)
[2017-01-19] MEDS: THIAMINE HCL 100 MG TABLET (FP) PO SCH (21:15)
[2017-01-19] MEDS: DIVALPROEX SODIUM 500 MG TABLET E.C. PO SCH (21:15)
[2017-01-20] MEDS: PRENATAL VITAMINS W/ FOLIC ACID TABLET (FP) PO SCH (10:26)
[2017-01-20] MEDS: amLODIPine BESYLATE 10 MG TABLET (FP) PO SCH (10:26)
[2017-01-20] MEDS: TRIAMTERENE AND HCTZ - 37.5 MG/25 MG CAPSULE PO SCH (10:26)
[2017-01-20] MEDS ORDERED: cloNIDine HCL 0.1 MG TABLET PO ONE (13:22)
[2017-01-20] MEDS: THIAMINE HCL 100 MG TABLET (FP) PO SCH (21:40)
[2017-01-20] MEDS: cloNIDine HCL 0.1 MG TABLET PO SCH (21:40)
[2017-01-20] MEDS: traZODone HCL 100 MG TABLET (FP) PO SCH (21:40)
[2017-01-20] MEDS: DIVALPROEX SODIUM 500 MG TABLET E.C. PO SCH (21:40)
[2017-01-21] MEDS: PRENATAL VITAMINS W/ FOLIC ACID TABLET (FP) PO SCH (10:00)
[2017-01-21] MEDS: amLODIPine BESYLATE 10 MG TABLET (FP) PO SCH (10:00)
[2017-01-21] MEDS: TRIAMTERENE AND HCTZ - 37.5 MG/25 MG CAPSULE PO SCH (10:00)
[2017-01-21] MEDS: cloNIDine HCL 0.1 MG TABLET PO SCH ×2 (10:00→21:10)
[2017-01-21] MEDS: traZODone HCL 100 MG TABLET (FP) PO SCH (21:10)
[2017-01-21] MEDS: DIVALPROEX SODIUM 500 MG TABLET E.C. PO SCH (21:10)
[2017-01-21] MEDS: THIAMINE HCL 100 MG TABLET (FP) PO SCH (21:11)
[2017-01-21] MEDS: hydrOXYzine PAMOATE 50 MG CAPSULE (FP) PO PRN (21:12)
[2017-01-22] MEDS: TRIAMTERENE AND HCTZ - 37.5 MG/25 MG CAPSULE PO SCH (10:07)
[2017-01-22] MEDS: cloNIDine HCL 0.1 MG TABLET PO SCH ×2 (10:07→21:18)
[2017-01-22] MEDS: amLODIPine BESYLATE 10 MG TABLET (FP) PO SCH (10:07)
[2017-01-22] MEDS: PRENATAL VITAMINS W/ FOLIC ACID TABLET (FP) PO SCH (10:07)
[2017-01-22] MEDS: hydrOXYzine PAMOATE 50 MG CAPSULE (FP) PO PRN ×2 (10:08→21:17)
[2017-01-22] MEDS: traZODone HCL 100 MG TABLET (FP) PO SCH (21:17)
[2017-01-22] MEDS: THIAMINE HCL 100 MG TABLET (FP) PO SCH (21:17)
[2017-01-22] MEDS: DIVALPROEX SODIUM 500 MG TABLET E.C. PO SCH (21:18)
[2017-01-22] MEDS: TOLNAFTATE 1% CREAM 15 GM TUBE TP SCH (21:49)
[2017-01-23] MEDS: PRENATAL VITAMINS W/ FOLIC ACID TABLET (FP) PO SCH (10:15)
[2017-01-23] MEDS: amLODIPine BESYLATE 10 MG TABLET (FP) PO SCH (10:15)
[2017-01-23] MEDS: TOLNAFTATE 1% CREAM 15 GM TUBE TP SCH (10:15)
[2017-01-23] MEDS: cloNIDine HCL 0.1 MG TABLET PO SCH ×2 (10:15→21:23)
[2017-01-23] MEDS: TRIAMTERENE AND HCTZ - 37.5 MG/25 MG CAPSULE PO SCH (10:16)
[2017-01-23] MEDS: DIVALPROEX SODIUM 500 MG TABLET E.C. PO SCH (21:22)
[2017-01-23] MEDS: traZODone HCL 100 MG TABLET (FP) PO SCH (21:23)
[2017-01-23] MEDS: THIAMINE HCL 100 MG TABLET (FP) PO SCH (21:23)
[2017-01-23] MEDS: CYCLOBENZAPRINE HCL 10 MG TABLET (FP) PO PRN (21:24)
[2017-01-24] MEDS: PRENATAL VITAMINS W/ FOLIC ACID TABLET (FP) PO SCH (09:51)
[2017-01-24] MEDS: cloNIDine HCL 0.1 MG TABLET PO SCH ×2 (09:51→21:17)
[2017-01-24] MEDS: TOLNAFTATE 1% CREAM 15 GM TUBE TP SCH ×2 (09:52→21:18)
[2017-01-24] MEDS: TRIAMTERENE AND HCTZ - 37.5 MG/25 MG CAPSULE PO SCH (09:52)
[2017-01-24] MEDS: amLODIPine BESYLATE 10 MG TABLET (FP) PO SCH (09:52)
[2017-01-24] MEDS: THIAMINE HCL 100 MG TABLET (FP) PO SCH (21:17)
[2017-01-24] MEDS: DIVALPROEX SODIUM 500 MG TABLET E.C. PO SCH (21:17)
[2017-01-24] MEDS: traZODone HCL 100 MG TABLET (FP) PO SCH (21:17)
[2017-01-25] MEDS: PRENATAL VITAMINS W/ FOLIC ACID TABLET (FP) PO SCH (09:51)
[2017-01-25] MEDS: amLODIPine BESYLATE 10 MG TABLET (FP) PO SCH (09:51)
[2017-01-25] MEDS: cloNIDine HCL 0.1 MG TABLET PO SCH ×2 (09:51→21:18)
[2017-01-25] MEDS: TOLNAFTATE 1% CREAM 15 GM TUBE TP SCH ×2 (09:52→21:20)
[2017-01-25] MEDS: TRIAMTERENE AND HCTZ - 37.5 MG/25 MG CAPSULE PO SCH (09:52)
[2017-01-25] MEDS: hydrOXYzine PAMOATE 50 MG CAPSULE (FP) PO PRN (19:55)
[2017-01-25] MEDS: traZODone HCL 100 MG TABLET (FP) PO SCH (21:18)
[2017-01-25] MEDS: THIAMINE HCL 100 MG TABLET (FP) PO SCH (21:18)
[2017-01-25] MEDS: DIVALPROEX SODIUM 500 MG TABLET E.C. PO SCH (21:18)
[2017-01-26] MEDS: amLODIPine BESYLATE 10 MG TABLET (FP) PO SCH (10:00)
[2017-01-26] MEDS: PRENATAL VITAMINS W/ FOLIC ACID TABLET (FP) PO SCH (10:00)
[2017-01-26] MEDS: TRIAMTERENE AND HCTZ - 37.5 MG/25 MG CAPSULE PO SCH (10:00)
[2017-01-26] MEDS: cloNIDine HCL 0.1 MG TABLET PO SCH ×2 (10:00→21:20)
[2017-01-26] MEDS: TOLNAFTATE 1% CREAM 15 GM TUBE TP SCH ×2 (10:01→21:21)
[2017-01-26] MEDS: DIVALPROEX SODIUM 500 MG TABLET E.C. PO SCH (21:20)
[2017-01-26] MEDS: traZODone HCL 100 MG TABLET (FP) PO SCH (21:20)
[2017-01-26] MEDS: THIAMINE HCL 100 MG TABLET (FP) PO SCH (21:20)
[2017-01-26] MEDS: hydrOXYzine PAMOATE 50 MG CAPSULE (FP) PO PRN (21:21)
[2017-01-27] MEDS: TRIAMTERENE AND HCTZ - 37.5 MG/25 MG CAPSULE PO SCH (09:58)
[2017-01-27] MEDS: PRENATAL VITAMINS W/ FOLIC ACID TABLET (FP) PO SCH (09:59)
[2017-01-27] MEDS: cloNIDine HCL 0.1 MG TABLET PO SCH ×2 (09:59→21:27)
[2017-01-27] MEDS: amLODIPine BESYLATE 10 MG TABLET (FP) PO SCH (09:59)
[2017-01-27] MEDS: TOLNAFTATE 1% CREAM 15 GM TUBE TP SCH ×2 (09:59→21:27)
[2017-01-27] MEDS: DIVALPROEX SODIUM 500 MG TABLET E.C. PO SCH (21:26)
[2017-01-27] MEDS: THIAMINE HCL 100 MG TABLET (FP) PO SCH (21:26)
[2017-01-27] MEDS: traZODone HCL 100 MG TABLET (FP) PO SCH (21:27)
[2017-01-27] MEDS: hydrOXYzine PAMOATE 50 MG CAPSULE (FP) PO PRN (21:29)
[2017-01-28] MEDS: amLODIPine BESYLATE 10 MG TABLET (FP) PO SCH (10:00)
[2017-01-28] MEDS: PRENATAL VITAMINS W/ FOLIC ACID TABLET (FP) PO SCH (10:00)
[2017-01-28] MEDS: TOLNAFTATE 1% CREAM 15 GM TUBE TP SCH ×2 (10:01→21:16)
[2017-01-28] MEDS: hydrOXYzine PAMOATE 50 MG CAPSULE (FP) PO PRN ×2 (10:01→21:16)
[2017-01-28] MEDS: TRIAMTERENE AND HCTZ - 37.5 MG/25 MG CAPSULE PO SCH (10:01)
[2017-01-28] MEDS: cloNIDine HCL 0.1 MG TABLET PO SCH ×2 (10:01→21:16)
[2017-01-28] MEDS: traZODone HCL 100 MG TABLET (FP) PO SCH (21:16)
[2017-01-28] MEDS: DIVALPROEX SODIUM 500 MG TABLET E.C. PO SCH (21:16)
[2017-01-28] MEDS: THIAMINE HCL 100 MG TABLET (FP) PO SCH (21:16)
--- NOTE | 2017-01-29 06:41 | PN ---
Psychiatric Progress Note Vital Signs: Vital Signs Period Temp Pulse Resp BP Sys/[place] Pulse Ox Last 24 Hr 97.5 F 76-87 18-18 133-137/74-97 Date of Session: 01/29/17 Chief Complaint:: Discharge Note HPI: Patient addressing Opoid and Cocaine Dependence comormid with Nicotine Dependence and Bipolar Disorder ROS: PPD+, HTN were medically managed Current Medications: Active Medications Generic Name Dose Route Start Last Admin Trade Name Freq PRN Reason Stop Dose Admin Acetaminophen 650 mg 12/28/16 11:48 Tylenol - PO Q4H PRN FEVER OR PAIN Al Hydroxide/Mg Hydroxide 30 ml 12/28/16 11:48 Mylanta Oral Suspension - PO Q6H PRN DYSPEPSIA Amlodipine Besylate 10 mg 12/28/16 12:00 01/28/17 10:00 Norvasc - PO 10 mg DAILY MINH Administration Bupropion HCl 300 mg 12/29/16 10:00 01/28/17 10:00 Wellbutrin Xl - PO 300 mg DAILY MINH Administration Clonidine 0.1 mg 01/20/17 22:00 01/28/17 21:16 Catapres - PO 0.1 mg BID MINH Administration Cyclobenzaprine HCl 10 mg 01/15/17 13:16 01/23/17 21:24 Flexeril - PO 10 mg TID PRN Administration MUSCLE SPASMS Diphenhydramine HCl 50 mg 12/28/16 22:00 Benadryl - PO HSMR1 PRN INSOMNIA Divalproex Sodium 1,000 mg 12/28/16 22:00 01/28/17 21:16 Depakote - PO 1,000 mg HS MINH Administration Eucalyptus/Menthol/Phenol/Sorbitol 1 each 12/28/16 11:48 Cepastat Lozenge - MM Q4H PRN SORE THROAT Guaifenesin 10 ml 12/28/16 11:48 Robitussin Dm - PO Q6H PRN COUGH Hydroxyzine Pamoate 50 mg 12/28/16 11:48 01/28/17 21:16 Vistaril - PO 50 mg Q4H PRN Administration AGITATION Ibuprofen 400 mg 12/28/16 11:48 Motrin - PO Q6H PRN SEVERE PAIN Loperamide HCl 4 mg 12/28/16 11:48 01/01/17 08:10 Imodium - PO 4 mg Q6H PRN Administration DIARRHEA Magnesium Citrate 300 ml 12/28/16 11:48 Citroma - PO Q48H PRN CONSTIPATION Magnesium Hydroxide 30 ml 12/28/16 11:48 Milk Of Magnesia - PO DAILY PRN CONSTIPATION Nicotine Polacrilex 4 mg 12/28/16 11:48 01/01/17 13:47 Nicorette Gum - BUC 4 mg Q2H PRN Administration NICOTINE REPLACEMENT RX Multivit/Folic Acid/Iron 1 tab 12/29/16 10:00 01/28/17 10:00 Vitamins (Sjr) - PO 1 tab DAILY MINH Administration Pseudoephedrine/Triprolidine 1 combo 12/28/16 11:48 Actifed - PO TID PRN NASAL CONGESTION Thiamine HCl 100 mg 12/28/16 22:00 01/28/17 21:16 Vitamin B1 - PO 100 mg HS MINH Administration Tolnaftate 1 applic 01/22/17 22:00 01/28/17 21:16 Tinactin 1% Cream - TP Not Given BID MINH Trazodone HCl 100 mg 12/28/16 22:00 01/28/17 21:16 Desyrel - PO 100 mg HS MINH Administration Triamterene/HCTZ 1 cap 01/03/17 10:00 01/28/17 10:01 Dyazide 25/37.5mg PO 1 cap DAILY MINH Administration Current Side Effect: No Lab tests ordered: Yes Lab tests reviewed: Yes Provider note:: Patient has completed this program today. He has met his treatment goals and will continue to address his issues in outpatient treatment at [facility] at [address] [place] [address]. 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 He responded well to wellbutrin XL 300 mg po daily, Depakote 1000 mg po HS and Trazadone 100 mg po HS. Scripts for 30 days supply of these medications are electronically transmitted to [facility] at [address] [place] [address]. He is stable for discharge today Total face to face time:: 35 Mental Status Exam - Mental Status Exam Alert and Oriented to: Time, Place, Person Cognitive Function: Fair Patient Appearance: Well Groomed Mood: Hopeful, Euthymic Affect: Appropriate Patient Behavior: Cooperative Speech Pattern: Clear Voice Loudness: Normal Thought Process: Intact, Goal Oriented Thought Disorder: Not Present Hallucinations: Denies Suicidal Ideation: Denies Homicidal Ideation: Denies Insight/Judgement: Fair Sleep: Fair Appetite: Good Muscle strength/Tone: Normal Gait/Station: Normal Psychiatric Treatment Plan - Problem List (1) Opioid dependence with withdrawal Current Visit: Yes (2) Cocaine dependence Current Visit: Yes Qualifiers: Substance use status: uncomplicated Qualified Code(s): F14.20 - Cocaine dependence, uncomplicated (3) Nicotine dependence Current Visit: Yes Qualifiers: Nicotine product type: cigarettes Substance use status: uncomplicated Qualified Code(s): F17.210 - Nicotine dependence, cigarettes, uncomplicated (4) Bipolar disorder Current Visit: Yes (5) HTN (hypertension) Current Visit: Yes Qualifiers: Hypertension type: essential hypertension Qualified Code(s): I10 - Essential (primary) hypertension (6) History of positive PPD Current Visit: Yes Comment: states never took medication but CXR has been normal Initial treatment plan: Patient is discharged today and referred to [facility] for outpatient treatment
[2017-01-29 06:53] VITALS: BP 126/84; PULSE 76; TEMP 97.7
[2017-01-29] MEDS: cloNIDine HCL 0.1 MG TABLET PO SCH (09:45)
[2017-01-29] MEDS: amLODIPine BESYLATE 10 MG TABLET (FP) PO SCH (09:45)
[2017-01-29] MEDS: PRENATAL VITAMINS W/ FOLIC ACID TABLET (FP) PO SCH (09:45)
[2017-01-29] MEDS: TRIAMTERENE AND HCTZ - 37.5 MG/25 MG CAPSULE PO SCH (09:45)
[2017-01-29] MEDS: TOLNAFTATE 1% CREAM 15 GM TUBE TP SCH (09:46)
== END 2017-01-29 10:15 | disposition home or self-care (01) | DRG 895 ==
LOC: YASAS 09:58 → Y3N 12:34 → Y5N 01-02 12:19
PROVIDERS: ADMIT Internal Medicine; ATTEND Psychiatry & Neurology Psychiatry
PROC: HZ2ZZZZ Detoxification Services for Substance Abuse Treatment (ICD-10-PCS; principal; 2016-12-28)
PROC: HZ42ZZZ Group Counseling for Substance Abuse Treatment, Cognitive-Behavioral (ICD-10-PCS; 2017-01-02)
DX: F19.230 Other psychoactive substance dependence with withdrawal, uncomplicated (principal); F14.20 Cocaine dependence, uncomplicated; N17.9 Acute kidney failure, unspecified; F11.23 Opioid dependence with withdrawal; F17.210 Nicotine dependence, cigarettes, uncomplicated; F31.9 Bipolar disorder, unspecified; E87.6 Hypokalemia; R76.11 Nonspecific reaction to tuberculin skin test without active tuberculosis; I10 Essential (primary) hypertension; E86.0 Dehydration; Z91.14 Patient's other noncompliance with medication regimen; Z91.5 Personal history of self-harm
CPT/HCPCS: 36415; 71020-TC; 80048; 80053; 81003; 81015; 85027; 86593; 93005; 93010